=== PATIENT | male | born 1960 | race Caucasian/White ===

== ENCOUNTER 2021-05-09 23:02 | Emergency (ER) | payer OTHER ==
[~2021-05-09] VITALS: Ht 172.7 cm; Wt 59.0 kg
[2021-05-09] MEDS ORDERED: VANCOMYCIN 1,250 MG in D5W 5% 250 ML IV STA (23:20)
[2021-05-09] MEDS ORDERED: HYDROmorphone HCL 2 MG/ML VL IV ONE (23:30)
[2021-05-09] MEDS ORDERED: DOXYCYCLINE 100MG/250ML 250 ML IV ONE (23:30)
[2021-05-09] MEDS ORDERED: TETANUS-DIPTH-ACEL PERTUSSIS 0.5ML SYR Tdap IM ONE (23:30)
[2021-05-09] MEDS ORDERED: SODIUM CHLORIDE 0.9% 1,000 ML IV ONE (23:30)
[2021-05-09] MEDS ORDERED: ONDANSETRON HCL 4 MG/2 ML VIAL IV ONE (23:30)
[2021-05-10 00:05] LABS: BUN/Creatinine Ratio 20.5; Calcium 8.5 mg/dL (8.5-10.1); Potassium 3.7 mmol/L (3.5-5.1)
[2021-05-10 00:07] LABS: Basophils # (auto) 0.1 10 ^3/uL (0-0.2); Basophils % (auto) 0.8 % (0.0-2.0); Eosinophils # (auto) 0.1 10 ^3/uL (0-0.8); Eosinophils % (auto) 0.7 % (0.0-7.0); Hematocrit 42.1 % (41.0-53.0); Hemoglobin 13.8 g/dL (13.5-17.5); Lymphocytes # (auto) 1.4 10 ^3/uL (0.4-5.4); Lymphocytes % (auto) 7.5 % (10.0-50.0); Mean Corpuscular Hemoglobin 30.9 pg (28.0-32.0); Mean Corpuscular Hgb Conc. 32.7 g/dL (32.0-36.0); Mean Corpuscular Volume 94.6 fL (80.0-100.0); Monocytes # (auto) 0.8 10 ^3/uL (0-1.3); Monocytes % (auto) 4.7 % (0.0-12.0); Neutrophils # (auto) 15.7 10 ^3/uL (1.6-8.6); Neutrophils % (auto) 86.3 % (37.0-80.0); Red Blood Cells 4.45 10^6/uL (4.5-5.90); Red Cell Distribution Width 15.6 % (11.8-14.3); White Blood Cell 18.2 10^3/uL (4.4-10.8)
[2021-05-10] MEDS ORDERED: LORazepam 2MG/ML-1ML VIAL IM ONE (02:00)
[2021-05-10] MEDS ORDERED: VANCOMYCIN 1GM/250ML 250 ML IV ONE (03:45)
[2021-05-10] MEDS ORDERED: HYDROmorphone HCL 2 MG/ML VL IV ONE ×2 (08:30→11:30)
[2021-05-10] MEDS ORDERED: IOHEXOL 300 MG/ML 100ML BOTTLE IJ ONE (08:37)
[2021-05-10] MEDS ORDERED: LORazepam 0.5 MG TAB PO ONE (09:00)
[2021-05-10] MEDS ORDERED: CLINDAMYCIN 600MG IV 50 ML IV ONE (11:30)
[2021-05-10 12:51] VITALS: BP 144/82
== END 2021-05-10 13:54 | disposition short-term general hospital (02) ==
LOC: ER 23:02
DX: A41.9 Sepsis, unspecified organism (principal); M86.9 Osteomyelitis, unspecified; L02.91 Cutaneous abscess, unspecified; Z20.822 Contact with and (suspected) exposure to COVID-19
CPT/HCPCS: 36415; 73201; 80048; 83605; 85025; 85652; 87040; 87077; 87186; 87426; 90715; 96365; 96366; 96367; 96372; 96375; 96376; 99285; J1170; J2060; J2405; J3370; J3490; J7030; J7060

== ENCOUNTER 2021-06-08 18:07 | Emergency (ER) | payer OTHER ==
[~2021-06-08] VITALS: Ht 172.7 cm; Wt 59.0 kg
[2021-06-08 18:14] VITALS: BP 130/96
== END 2021-06-08 19:27 | disposition left against medical advice (07) ==
LOC: ER 18:09
DX: M25.532 Pain in left wrist (principal); Z53.21 Procedure and treatment not carried out due to patient leaving prior to being seen by health care provider

== ENCOUNTER → 2021-06-09 | Emergency (ER) | payer OTHER ==
[~2021-06-09] VITALS: Ht 175.3 cm; Wt 59.0 kg
[2021-06-09 12:59] VITALS: BP 145/95
== END | disposition left against medical advice (07) ==
LOC: ER 12:55
DX: Z48.01 Encounter for change or removal of surgical wound dressing (principal); Z53.21 Procedure and treatment not carried out due to patient leaving prior to being seen by health care provider

== ENCOUNTER 2021-09-07 20:44 | Emergency (ER) | payer OTHER ==
[~2021-09-07] VITALS: Ht 175.3 cm; Wt 77.1 kg
[2021-09-07 22:36] LABS: Basophils # (auto) 0.1 10 ^3/uL (0-0.2); Basophils % (auto) 0.6 % (0.0-2.0); Eosinophils # (auto) 0.1 10 ^3/uL (0-0.8); Eosinophils % (auto) 0.6 % (0.0-7.0); Hematocrit 49.9 % (41.0-53.0); Hemoglobin 16.8 g/dL (13.5-17.5); Lymphocytes # (auto) 1.2 10 ^3/uL (0.4-5.4); Lymphocytes % (auto) 9.6 % (10.0-50.0); Mean Corpuscular Hemoglobin 30.4 pg (28.0-32.0); Mean Corpuscular Hgb Conc. 33.7 g/dL (32.0-36.0); Mean Corpuscular Volume 90.1 fL (80.0-100.0); Monocytes # (auto) 0.6 10 ^3/uL (0-1.3); Monocytes % (auto) 5.2 % (0.0-12.0); Neutrophils # (auto) 10.3 10 ^3/uL (1.6-8.6); Red Blood Cells 5.54 10^6/uL (4.5-5.90); Red Cell Distribution Width 15.4 % (11.8-14.3); White Blood Cell 12.2 10^3/uL (4.4-10.8)
[2021-09-07 22:55] LABS: Potassium 3.7 mmol/L (3.5-5.1)
[2021-09-07 23:01] LABS: Albumin 4.5 g/dL (3.4-5.0); BUN/Creatinine Ratio 13.7; Calcium 9.2 mg/dL (8.5-10.1); Total Protein 8.4 g/dL (6.4-8.2)
[2021-09-07 23:06] LABS: Bilirubin, Total 0.5 mg/dL (0.2-1.0)
[2021-09-08 03:05] VITALS: BP 143/94
== END 2021-09-08 05:31 | disposition home or self-care (01) ==
LOC: ER 20:44 → EDBD 20:44 → ER 09-08 05:31
DX: F41.9 Anxiety disorder, unspecified (principal); F17.210 Nicotine dependence, cigarettes, uncomplicated; Z59.00 Homelessness unspecified; Z88.0 Allergy status to penicillin; Z88.6 Allergy status to analgesic agent
CPT/HCPCS: 36415; 71045; 80053; 83880; 84484; 85025; 93005